=== PATIENT | female | born 1970 | race Caucasian/White ===

== ENCOUNTER 2017-05-23 00:14 | Inpatient (IN) ==
[2017-05-23 00:32] LABS: Basophils % 0.5 %; Eosinophils # 0.1 K/mcL (0.0-0.6); Eosinophils % 1.3 %; Hematocrit 35.4 % (35.3-44.9); Hemoglobin 11.7 g/dL (11.5-15.4); Immature Granulocytes % 0.3 % (0-4); Lymphocytes # 1.9 K/mcL (0.6-4.6); Lymphocytes % 31.1 %; Mean Corpuscular HGB Conc 33.1 g/dL (31.6-35.5); Mean Corpuscular Volume 93.7 fL (83.0-100.0); Mean Platelet Volume 10.8 fL (9.4-12.4); Monocytes # 0.5 K/mcL (0.0-1.3); Monocytes % 7.2 %; Neutrophils # 3.7 K/mcL (1.6-8.9); Platelet Count 158 K/mcL (140-400); Red Blood Count 3.78 M/mcL (3.82-4.97); Red Cell Distribution Width 13.3 % (11.5-14.5); Segmented Neutrophils % 59.6 %
[2017-05-23 00:46] LABS: BUN/Creatinine Ratio 20 (6-26); Blood Urea Nitrogen 18 mg/dL (7-20); Calcium 9.7 mg/dL (8.6-10.8); Carbon Dioxide 22 mEq/L (19-29); Chloride 107 mEq/L (98-109); Glucose 96 mg/dL (70-99); Osmolality,Calculated 292 (280-300); Potassium 3.9 mEq/L (3.5-4.5); Sodium 140 mEq/L (136-145); eGFR For African Americans > 60 (> 60); eGFR For Non-African Americans > 60 (> 60)
[2017-05-23 00:47] LABS: INR 1.1; Prothrombin Time 11.3 Seconds (9.4-12.1)
[2017-05-23 00:49] LABS: Activated Partial Thrombo Time 28.4 Seconds (26.0-36.0)
[2017-05-23 00:56] LABS: Bilirubin,Urine Negative (Negative); Blood,Urine Negative (Negative); Clarity,Urine Clear (Clear); Color,Urine Yellow (Yellow); Glucose,Urine (UA) Normal (Normal); Ketones,Urine Negative (Negative); Leukocyte Esterase,Urine Trace (Negative); Nitrite,Urine Negative (Negative); Protein,Urine Negative (Neg-Trace); Specific Gravity,Urine 1.018 (1.010-1.025); Urobilinogen,Urine Normal (Normal)
[2017-05-23 01:09] LABS: Bacteria,Urine Few per hpf (None-Few); RBC,Urine 0-3 per hpf (0-3)
[2017-05-23] MEDS ORDERED: Ondansetron 4 MG/2 ML VIAL IVP PRN (01:25)
--- NOTE | 2017-05-23 01:26 | Emergency Department Note ---
Disposition Clinical Impression: Stable angina Disposition: Admitted As Inpatient Condition: Good Referrals: Annita Smart CNP [Primary Care Provider] - Forms: ED Satisfaction Letter Time of Disposition: 01:57 Chest Pain HPI - General Chief Complaint: ED Chest Pain Stated Complaint: chest pain Time Seen by Provider: 05/23/17 00:20 Source: patient Mode of arrival: ambulatory Limitations: no limitations Vital Signs Reviewed: Yes Nursing Notes Reviewed: Yes - History of Present Illness HPI Narrative: Patient presents to the ED with the chief complaint of chest pain, nausea. Patient states he has a history of coronary artery disease with previous VA and stents. States the pain was rather acute in onset about an hour prior to arrival when she was at rest. States it is in the middle of her chest and radiates through to her back and jaw. Associated with nausea and generalized weakness. Denies any shortness breath. States she feels awful. Severity scale (1-10): 4 - Related Data Allergies Allergy/AdvReac Type Severity Reaction Status Date / Time Erythromycin Base Allergy Hives Verified 05/23/17 00:20 tea Allergy Swelling Uncoded 05/23/17 00:20 of Lip/Tongue/Throat All systems ED: reviewed and negative except as stated. 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 - Social History Smoking Status: Current every day smoker Alcohol use: Reports: none Drug use: Reports: none Physical Exam - General Limitations: no limitations General appearance: alert, in no apparent distress - Head Head exam: atraumatic, normocephalic, normal inspection - Eye Eye exam: Present: normal appearance, PERRL, EOMI - Chest Chest inspection: Present: normal inspection, symmetric chest wall rise - Respiratory Respiratory exam: Present: normal lung sounds bilaterally - Cardiovascular Cardiovascular exam: Present: regular rate, normal rhythm, normal heart sounds - Abdominal Exam Abdominal exam: Present: soft, Non-Tender. Absent: tenderness, distention, guarding, rebound, rigidity - Neurological Exam Neurological exam: Present: alert, oriented X3 - Psychiatric Psychiatric exam: Present: normal affect, normal mood - Skin Skin exam: Present: warm, dry, intact, normal color Course Course Narrative: Patient presenting with chest pain. Workup started. We will reevaluate. - Reevaluation(s) Reevaluation #1: Patient's initial troponin is normal. However, symptom onset was about 2 hours ago. Patient still complaining of nausea and 4 out of 10 pain. EKG shows no acute ischemic changes. We will try nitroglycerin and Zofran. Patient will likely need to be admitted for her anginal equivalent nitro helped. Vital Signs Temperature 98.4 F 05/23/17 00:15 Pulse Rate 65 05/23/17 00:15 Respiratory Rate 18 05/23/17 00:15 Blood Pressure 130/58 05/23/17 00:15 O2 Sat by Pulse Oximetry 99 05/23/17 00:15 Temperature 98.4 F 05/23/17 00:15 Pulse Rate 57 05/23/17 01:53 Respiratory Rate 18 05/23/17 00:15 Blood Pressure 118/75 05/23/17 01:53 O2 Sat by Pulse Oximetry 100 05/23/17 00:27 Oxygen Delivery Oxygen Delivery Room Air Chest Pain - Lab Data Result diagrams: 05/23/17 00:26 05/23/17 00:26 Lab Results 05/23/17 05/23/17 05/23/17 Range/Units 00:26 00:26 00:26 WBC 6.2 (4.3-11.1) K/mcL RBC 3.78 L (3.82-4.97) M/mcL Hgb 11.7 (11.5-15.4) g/dL Hct 35.4 (35.3-44.9) % MCV 93.7 (83.0-100.0) fL MCH 31.0 (28.0-33.3) pg MCHC 33.1 (31.6-35.5) g/dL RDW 13.3 (11.5-14.5) % Plt Count 158 (140-400) K/mcL MPV 10.8 (9.4-12.4) fL Immature Gran % 0.3 (0-4) % Seg Neutrophils % 59.6 % Lymphocytes % 31.1 % Monocytes % 7.2 % Eosinophils % 1.3 % Basophils % 0.5 % Neutrophils # 3.7 (1.6-8.9) K/mcL Lymphocytes # 1.9 (0.6-4.6) K/mcL Monocytes # 0.5 (0.0-1.3) K/mcL Eosinophils # 0.1 (0.0-0.6) K/mcL Basophils # 0.0 (0.0-0.2) K/mcL PT 11.3 (9.4-12.1) Seconds INR 1.1 APTT 28.4 (26.0-36.0) Seconds Sodium (136-145) mEq/L Potassium (3.5-4.5) mEq/L Chloride (98-109) mEq/L Carbon Dioxide (19-29) mEq/L BUN (7-20) mg/dL Creatinine (0.57-1.11) mg/dL Est GFR ( Amer) (> 60) Est GFR (Non-Af Amer) (> 60) BUN/Creatinine Ratio (6-26) Glucose (70-99) mg/dL Calculated Osmolality (280-300) Calcium (8.6-10.8) mg/dL Troponin I (0-0.03) ng/mL B-Natriuretic Peptide 103 H (0-100) pg/mL Urine Color (Yellow) Urine Clarity (Clear) Urine pH (5.0-8.0) pH Units Ur Specific Anderson (1.010-1.025) Urine Protein (Neg-Trace) mg/dL Urine Glucose (UA) (Normal) mg/dL Urine Ketones (Negative) mg/dL Urine Blood (Negative) Urine Nitrite (Negative) Urine Bilirubin (Negative) Urine Urobilinogen (Normal) mg/dL Ur Leukocyte Esterase (Negative) Urine Microscopic RBC (0-3) per hpf Urine Microscopic WBC (0-3) per hpf Urine Bacteria (None-Few) per hpf Ur Culture Indicated? (NO) 05/23/17 05/23/17 05/23/17 Range/Units 00:26 00:26 00:40 WBC (4.3-11.1) K/mcL RBC (3.82-4.97) M/mcL Hgb (11.5-15.4) g/dL Hct (35.3-44.9) % MCV (83.0-100.0) fL MCH (28.0-33.3) pg MCHC (31.6-35.5) g/dL RDW (11.5-14.5) % Plt Count (140-400) K/mcL MPV (9.4-12.4) fL Immature Gran % (0-4) % Seg Neutrophils % % Lymphocytes % % Monocytes % % Eosinophils % % Basophils % % Neutrophils # (1.6-8.9) K/mcL Lymphocytes # (0.6-4.6) K/mcL Monocytes # (0.0-1.3) K/mcL Eosinophils # (0.0-0.6) K/mcL Basophils # (0.0-0.2) K/mcL PT (9.4-12.1) Seconds INR APTT (26.0-36.0) Seconds Sodium 140 (136-145) mEq/L Potassium 3.9 (3.5-4.5) mEq/L Chloride 107 (98-109) mEq/L Carbon Dioxide 22 (19-29) mEq/L BUN 18 (7-20) mg/dL Creatinine 0.90 (0.57-1.11) mg/dL Est GFR ( Amer) > 60 (> 60) Est GFR (Non-Af Amer) > 60 (> 60) BUN/Creatinine Ratio 20 (6-26) Glucose 96 (70-99) mg/dL Calculated Osmolality 292 (280-300) Calcium 9.7 (8.6-10.8) mg/dL Troponin I 0.00 (0-0.03) ng/mL B-Natriuretic Peptide (0-100) pg/mL Urine Color Yellow (Yellow) Urine Clarity Clear (Clear) Urine pH 7.0 (5.0-8.0) pH Units Ur Specific Anderson 1.018 (1.010-1.025) Urine Protein Negative (Neg-Trace) mg/dL Urine Glucose (UA) Normal (Normal) mg/dL Urine Ketones Negative (Negative) mg/dL Urine Blood Negative (Negative) Urine Nitrite Negative (Negative) Urine Bilirubin Negative (Negative) Urine Urobilinogen Normal (Normal) mg/dL Ur Leukocyte Esterase Trace H (Negative) Urine Microscopic RBC 0-3 (0-3) per hpf Urine Microscopic WBC 3-5 H (0-3) per hpf Urine Bacteria Few (None-Few) per hpf Ur Culture Indicated? YES A (NO) Heart Score - Score History: Moderately Suspicious EKG: Non Specific repolarisation Disturbance Age: Less than 45 Risk Factors: Equal/Greater than 3 risk factor or history of atherosclerotic disease Troponin: Less than normal limit HEART Score Total: 4 S.B.A.Amarjit. - S.B.AGeorgette Situation: Demographics, MOA Background: Presenting Complaint, Relevant PMH, Meds, & Allergies Assessment: Vital Signs, Course and respsone to treatment, Exam Concerns, Patient/Family Expectation, Pertinant Lab Results, Outstanding Labs Recommendation: Barrier(s) to disposition, Recommendation based on pending studies, treatments, or consults S.B.A.R. Report Given to: Dr. Kirk MongeAGeorgette Repor Time: 01:58
--- NOTE | 2017-05-23 01:27 | Emergency Department Note ---
START Narrative - START START: I examined this patient and my medical decision-making was reviewed with the Resident Physician. I agree with the documented findings, disposition and treatment plan as described except to the extent set forth below. 46yo F here for chest pain. hx of CAD. admit for aCS rule out. trop neg ekg ok vss cp still a 11/11. nitro ordered.
[2017-05-23] MEDS: Nitroglycerin 0.4 MG TAB.SUBL SL PRN ×3 (01:46→01:57)
[2017-05-23] MEDS ORDERED: Ondansetron 4 MG/2 ML VIAL ONE (01:49)
--- NOTE | 2017-05-23 03:22 | Event Note ---
Date of Encounter: 05/23/17 Time of Encounter: 03:21 Patient seen and examined with medical record consultant. 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 No relation to exertion. Rule out acute coronary syndrome and check the regina. Patient does not recall having any coronary bypass during the mitral valve replacement she had last year. She has prior history of IV drug use and hepatitis C virus has been sober for many years. Electrocardiogram shows no ST segment shifts. 1st troponin normal
[2017-05-23] MEDS ORDERED: Naloxone 0.4 MG/ML INJ IVP PRN ×2 (03:34→03:35)
[2017-05-23] MEDS ORDERED: 0.9 % Sodium Chloride 1,000 ML IVC SCH (03:45)
[2017-05-23] MEDS ORDERED: Acetaminophen 325 MG TABLET PO ONE (03:54)
--- NOTE | 2017-05-23 03:59 | Internal Med History&Physical ---
Date of Encounter: 05/23/17 Time of Encounter: 03:45 Assessment and Plan (1) Chest pain Current visit: Yes Status: Acute Patient's chest pain was described as centralized in her chest. Describes as a pressure like pain. Was rated 4 out of 10. -Patient's pain was improved with nitroglycerin. -EKG demonstrated no acute ischemic changes. -Chest x-ray was unremarkable. -Initial troponin was negative. -Troponin 2. -Continue to monitor vital signs. Qualifiers: Qualified Code(s): R07.9 - Chest pain, unspecified (2) Stable angina Current visit: Yes Status: Acute She has known history of stable angina. -Patient states that her chest pain that she experienced before admission was similar to the chest pain that she felt before. -Initial troponin was negative. -Repeat troponin 2. Internal Medicine - H&P: HPI History of present illness: Ms. Ines Valencia is a 46 year old female with past medical history of coronary artery disease and myocardial infarction who presented to the department with chief complaint of chest pain. Patient states that the pain was rather acute in onset and occurred proximally one hour prior to arrival. Patient stated the pain was located in the middle of her chest and radiated down to her back and up into her jaw. Patient admits to having nausea with this pain, but no vomiting or other GI distress. She denies diaphoresis. She says that she felt a generalized weakness when this pain started. She is not having shortness of breath. Upon arrival to the emergency department, patient was given a chest x- ray and EKG. Chest x-ray was unremarkable, an EKG showed no signs of myocardial infarction. Patient's pain has been relieved with nitroglycerin and nausea has been relieved with Zofran. During examination, patient did not complain of any chest pain, and was in no acute distress. She has no complaints at this time. Past Med Surg Social Fam HX - Past Medical History Medical history: coronary artery disease, hepatitis, myocardial infarction, other Psychiatric history: anxiety, depression - Past Surgical History Surgical History: angioplasty/stent, , hysterectomy - Social History Smoking Status: Current every day smoker Packs per day: 0.5 Smokeless Tobacco Status: No Alcohol use: none Drug use: none - Family History Sister Name: Kayla Lopez Age: 51 Living Status: Still Living Hx Family Cardiac Disorders: Yes (Mitral valve prolaps) Internal Medicine - H&P: Meds Albuterol Sulfate [Proventil Hfa] 6.7 gm IH Q6HR PRN 05/23/17 [History] Aspirin Enteric Coated [Aspirin EC] 81 mg PO DAILY 05/23/17 [History] Ferrous Sulfate TID 05/23/17 [History] Metoprolol [Lopressor] 12.5 mg PO BID 05/23/17 [History] Mometasone Furoate [Asmanex Hfa] 13 gm IH BID 05/23/17 [History] Polyethylene Glycol 3350 [MiraLAX] 17 gm PO DAILY 05/23/17 [History] 3 Allergy/AdvReac Type Severity Reaction Status Date / Time Erythromycin Base Allergy Hives Verified 05/23/17 00:20 tea Allergy Swelling Uncoded 05/23/17 00:20 of Lip/Tongue/Throat All Systems PM: A 10-system review of systems was performed and is negative for pertinent findings except as documented above in the HPI. - Constitutional Constitutional: no chills, no fever(s), no night sweats - EENT Eyes: no change in vision, no discharge, no pain, no photophobia Ears: no ear discharge, no ear pain, no tinnitus Nose, mouth and throat: no dysphagia, no nasal discharge, no neck pain, no sore throat - Cardiovascular Cardiovascular ROS IM: no chest pain, no diaphoresis, no dyspnea, no lightheadedness, no palpitations, no syncope - Respiratory Respiratory: no cough, no dyspnea, no wheezing, no excessive phlegm production - Gastrointestinal Gastrointestinal: no abdominal pain, no diarrhea, no hematemesis, no hematochezia, no melena, no nausea, no vomiting - Genitourinary Genitourinary: no change in urinary stream, no dysuria, no flank pain - Musculoskeletal Musculoskeletal ROS IM: no numbness, no tingling - Constitutional Vitals: Temp Pulse Resp BP Pulse Ox 97.2 F L 60 16 115/77 98 05/23/17 02:59 05/23/17 02:59 05/23/17 02:59 05/23/17 02:59 05/23/17 02:59 - Head Head exam: Present: atraumatic, normocephalic - Eye Eye exam: Present: PERRL, conjuntiva pink, sclera anicteric Pupils: Present: PERRL - Neck Neck exam general surgery: Present: supple, trachea midline. Absent: lymphadenopathy - Respiratory Respiratory exam: Present: CTAB. Absent: accessory muscle use, rales, rhonchi, wheezes - Cardiovascular Cardiovascular exam: Present: RRR, +S1, +S2. Absent: diastolic murmur, gallop, rubs, systolic murmur - GI/Abdominal GI/Abdominal exam: Present: normal bowel sounds, soft, no peritoneal signs. Absent: distended, tenderness - Extremities Exam Extremities exam: Present: warm, radial pulses palpable and symmetrical. Absent : calf tenderness, cyanotic, pedal edema - Neurological Exam Neurological exam: Present: CN II-XII intact, oriented X3, no focal deficits. Absent: pronater drift, facial droop, speech deficit - Skin Skin exam: Present: dry, intact Internal Med - H&P Results - Labs CBC & Chem 7: 05/23/17 00:26 05/23/17 00:26
[2017-05-23 04:00] LABS: Amphetamine Screen,Urine Negative ng/mL (Cutoff=1000); Barbiturate Screen,Urine Negative ng/mL (Cutoff=200); Benzodiazepines Screen,Urine Negative ng/mL (Cutoff=200); Cannabinoid Screen,Urine Negative ng/mL (Cutoff = 50); Cocaine Screen,Urine Negative ng/mL (Cutoff= 300); Opiate Screen,Urine Negative ng/mL (Cutoff=300); Phencyclidine Screen,Urine Negative ng/mL (Cutoff=25)
[2017-05-23 04:56] LABS: Basophils % 0.6 %; Eosinophils # 0.1 K/mcL (0.0-0.6); Eosinophils % 1.5 %; Hematocrit 34.9 % (35.3-44.9); Hemoglobin 11.5 g/dL (11.5-15.4); Immature Granulocytes % 0.2 % (0-4); Immature Platelets 8.5 % (1.1-6.1); Lymphocytes # 1.6 K/mcL (0.6-4.6); Lymphocytes % 30.3 %; Mean Corpuscular Hemoglobin 30.9 pg (28.0-33.3); Mean Corpuscular Volume 93.8 fL (83.0-100.0); Mean Platelet Volume 11.3 fL (9.4-12.4); Monocytes # 0.3 K/mcL (0.0-1.3); Monocytes % 6.5 %; Neutrophils # 3.2 K/mcL (1.6-8.9); Platelet Count 138 K/mcL (140-400); Red Blood Count 3.72 M/mcL (3.82-4.97); Red Cell Distribution Width 13.4 % (11.5-14.5); Segmented Neutrophils % 60.9 %
[2017-05-23 05:00] LABS: BUN/Creatinine Ratio 19 (6-26); Blood Urea Nitrogen 15 mg/dL (7-20); Calcium 9.7 mg/dL (8.6-10.8); Carbon Dioxide 22 mEq/L (19-29); Chloride 108 mEq/L (98-109); Chol/HDL Ratio 3.3 (0-4.9); Cholesterol 180 mg/dL (< 200); Glucose 97 mg/dL (70-99); HDL Cholesterol 54 mg/dL (40-59); LDL Cholesterol,Calculated 115 mg/dL (0-99); Osmolality,Calculated 291 (280-300); Potassium 3.9 mEq/L (3.5-4.5); Sodium 140 mEq/L (136-145); Triglycerides 57 mg/dL (< 150); eGFR For African Americans > 60 (> 60); eGFR For Non-African Americans > 60 (> 60)
[2017-05-23 05:11] LABS: Platelet Estimate Normal (Normal)
[2017-05-23] MEDS: *HR* Enoxaparin 40 MG/0.4 ML SYRINGE SQ SCH (05:35)
[2017-05-23] MEDS: Aspirin Enteric Coated 81 MG Tablet PO SCH (07:59)
[2017-05-23] MEDS: Beclomethasone 80mcg MDI IH SCH ×2 (11:51→20:35)
--- NOTE | 2017-05-23 13:08 | Event Note ---
Date of Encounter: 05/23/17 Time of Encounter: 08:40 Patient is currently lying in bed. Appears comfortable. Chest pain has improved. No shortness of breath. No nausea or vomiting. Troponins are negative. Will schedule for stress test. Patient received metoprolol this morning. So we will plan for a stress test tomorrow.
[2017-05-23] MEDS ORDERED: Acetaminophen 325 MG TABLET PO PRN (18:29)
--- NOTE | 2017-05-23 18:38 | Electrocardiograph Report ---
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
[2017-05-24] MEDS: *HR* Enoxaparin 40 MG/0.4 ML SYRINGE SQ SCH (05:59)
[2017-05-24] MEDS ORDERED: Regadenoson 0.4 MG/5 ML SYRINGE IVP ONE (06:45)
[2017-05-24] MEDS: Beclomethasone 80mcg MDI IH SCH (10:08)
[2017-05-24] MEDS: Aspirin Enteric Coated 81 MG Tablet PO SCH (10:33)
[2017-05-24 11:06] VITALS: BP 106/69
--- NOTE | 2017-05-24 13:15 | Discharge Summary ---
Date of Encounter: 05/24/17 Time of Encounter: 13:13 - Discharge Diagnosis (1) Chest pain Priority: Primary Status: Acute Qualifiers: Chest pain type: precordial pain Qualified Code(s): R07.2 - Precordial pain (2) Stable angina Priority: Secondary Status: Chronic (3) Incidental lung nodule, > 3mm and < 8mm Priority: Secondary Status: Acute - Discharge Medications Prescriptions: Isosorbide MONOnitrate (24 HR) [Imdur] 30 mg PO DAILY #30 tab.er.24h Home Medications: Albuterol Sulfate [Proventil Hfa] 1 puff IH Q6HR PRN 05/23/17 [History] Aspirin 81 mg PO DAILY 05/23/17 [History] Aspirin Enteric Coated [Aspirin EC] 81 mg PO DAILY 05/23/17 [History] Metoprolol [Lopressor] 12.5 mg PO BID 05/23/17 [History] Mometasone Furoate [Asmanex Hfa] 1 puff IH BID 05/23/17 [History] Polyethylene Glycol 3350 [MiraLAX] 17 gm PO DAILY PRN 05/23/17 [History] Isosorbide MONOnitrate (24 HR) [Imdur] 30 mg PO DAILY #30 tab.er.24h 05/24/17 [ Rx] Allergies/Adverse Reactions: 3 Allergy/AdvReac Type Severity Reaction Status Date / Time Erythromycin Base Allergy Hives Verified 05/23/17 00:20 tea Allergy Swelling Uncoded 05/23/17 00:20 of Lip/Tongue/Throat Procedures/tests Complete & Pending: Procedures Performed prior 72 hours Category Date Time Status CTA chest [CT angio chest] [CT] Stat Cat Scan 05/23/17 06:41 Completed NM olivia perf SPECT multi [NM] Routine Exams 05/24/17 07:00 Taken SP pharm nuclear stress Routine Y 05/24/17 07:00 Completed - Notes to Outpatient Provider Patient was found to have a 4 mm subpleural nodule within the left upper lobe, most likely a benign granuloma. As she is a high risk patient with history of smoking, optional CT is recommended at 12 months. Date of admission: 05/23/17 03:34 Primary care physician: Annita Smart CNP Discharging clinician: Miguel A Sanders Anticipated date of discharge: 05/24/17 - Patient Status Disposition: Home, Self-Care Condition: Good Functional capacity at discharge: independent ambulation Overall status at discharge: patient is progressing back to baseline - Discharge Instructions Instructions: Chest Pain (DC) Follow Up With: Annita Smart CNP [Primary Care Provider] - - Diet and Activity Activity: increase activity as tolerated Diet: low fat, low cholesterol, low salt diet Hospital course: Ms. Ines Valencia is a 46 year old female patient with a coronary artery disease and prior CA presented to the ER with complaints of chest pain. She has a history of stable angina. This time her chest pain was substernal and radiating down to her back and into her jaw. She was observed in the hospital to rule out ACS. Troponins were negative. EKG did not show any acute ST segment changes. Patient underwent cardiac stress test which was negative for ischemia or perfusion imaging. She does not have any chest pain at this time is stable to be discharged home. For her stable angina, I will add Imdur in addition to her beta diaz to help control her symptoms. 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 Patient was found to have a 4 mm subpleural nodule within the left upper lobe, most likely a benign granuloma. As she is a high risk patient with history of smoking, optional CT is recommended at 12 months. - Time Spent with Patient Total time spent providing and/or coordinating discharge services: Less than 30 minutes (20 min) - Constitutional Vitals: Temp Pulse Resp BP Pulse Ox 97.6 F 68 16 106/69 98 05/24/17 11:04 05/24/17 11:04 05/24/17 11:04 05/24/17 11:04 05/24/17 11:04 General appearance: Present: cooperative, A&O X 3, answers questions appropriately - Respiratory Respiratory exam: Present: CTAB. Absent: accessory muscle use, rales, rhonchi, wheezes - Cardiovascular Cardiovascular exam: Present: RRR, +S1, +S2. Absent: diastolic murmur, gallop, rubs, systolic murmur
[2017-05-24] MEDS ORDERED: FLUARIX QUAD 2017-18 36MOS UP/PF 0.5 ML SYRINGE IM ONE (13:59)
== END 2017-05-24 14:20 | disposition home or self-care (01) | DRG 198 ==
LOC: EMEROO 00:14 → 3BNU 00:14 → SUATTDRO 03:34
PROVIDERS: ADMIT Internal Medicine; ATTEND Internal Medicine

== ENCOUNTER 2018-12-14 15:19 | Inpatient (IN) ==
[2018-12-14] MEDS ORDERED: 0.9 % Sodium Chloride 1,000 ML IVC ONE (16:46)
[2018-12-14 17:08] LABS: Basophils % 0.5 %; Eosinophils % 0.5 %
[2018-12-14 17:09] LABS: Hematocrit 23.7 % (35.3-44.9); Hemoglobin 6.7 g/dL (11.5-15.4); Immature Granulocytes % 0.5 % (0-4); Lymphocytes # 0.4 K/mcL (0.6-4.6); Lymphocytes % 23.2 %; Mean Corpuscular HGB Conc 28.3 g/dL (31.6-35.5); Mean Corpuscular Hemoglobin 25.6 pg (28.0-33.3); Mean Corpuscular Volume 90.5 fL (83.0-100.0); Mean Platelet Volume 11.4 fL (9.4-12.4); Monocytes # 0.1 K/mcL (0.0-1.3); Monocytes % 4.3 %; Red Blood Count 2.62 M/mcL (3.82-4.97); Red Cell Distribution Width 15.5 % (11.5-14.5)
[2018-12-14 17:10] LABS: Neutrophils # 1.4 K/mcL (1.6-8.9); Platelet Count 94 K/mcL (140-400)
[2018-12-14 17:13] LABS: Anisocytosis 1+ (Not Present); Hypochromasia Present (Not Present); Platelet Estimate Decreased (Normal)
[2018-12-14 17:15] LABS: INR 1.1; Prothrombin Time 12.9 Seconds (9.4-12.1)
[2018-12-14] MEDS ORDERED: *HR* HYDROcodone/Acet 5/325 mg TABLET PO ONE (17:57)
[2018-12-14 18:17] LABS: Alanine Aminotransferase 13 Units/L (7-52); Albumin 3.4 g/dL (3.5-5.7); Albumin/Globulin Ratio 0.8 (1.1-2.2); Alkaline Phosphatase 149 Units/L (34-104); Aspartate Amino Transferase 37 Units/L (13-39); BUN/Creatinine Ratio 33 (6-26); Bilirubin,Direct 0.1 mg/dL (0.0-0.2); Bilirubin,Indirect 0.4 mg/dL (0.0-1.2); Bilirubin,Total 0.5 mg/dL (0.3-1.0); Blood Urea Nitrogen 30 mg/dL (6-20); Calcium 8.9 mg/dL (8.6-10.3); Carbon Dioxide 22 mEq/L (23-29); Chloride 104 mEq/L (98-107); Globulin 4.3 g/dL (2.4-3.5); Glucose 99 mg/dL (70-105); Osmolality,Calculated 286 (280-300); Potassium 3.5 mEq/L (3.5-5.1); Sodium 135 mEq/L (136-145); Total Protein 7.7 g/dL (6.4-8.9); Troponin I 0.17 ng/mL (< 0.04); eGFR For Non-African Americans > 60 (> 60)
[2018-12-14] MEDS ORDERED: Piperacillin/Tazobactam 4.5 GM in Water for inj. (sterile) 20 ML 20 ML IVP ONE (18:42)
[2018-12-14] MEDS ORDERED: Vancomycin (wt based) 1,000 MG VIAL IV ONE (18:43)
[2018-12-14 18:44] LABS: Bilirubin,Urine Small (Negative); Blood,Urine Negative (Negative); Clarity,Urine Clear (Clear); Color,Urine Yellow (Yellow); Glucose,Urine (UA) Normal (Normal); Ketones,Urine Negative (Negative); Leukocyte Esterase,Urine Trace (Negative); Nitrite,Urine Negative (Negative); Protein,Urine 100 mg/dL (Neg-Trace); Specific Gravity,Urine 1.026 (1.010-1.025); Urobilinogen,Urine Normal (Normal)
[2018-12-14 18:46] LABS: Bacteria,Urine Moderate per hpf (None-Few); Hyaline Casts,Urine None Seen per lpf (None-Few); RBC,Urine 15-30 per hpf (0-3); Squamous Epithelial Cell,Urine Many per lpf (None-Few)
--- NOTE | 2018-12-14 18:46 | Emergency Department Note ---
Disposition Clinical Impression: Pancytopenia, Petechiae, Elevated troponin Disposition: Admitted As Inpatient Condition: Fair Referrals: NONE,PCP [Primary Care Provider] - General Adult HPI - General Chief complaint: ED General Medical Stated complaint: Low INR/Right Arm Numb x 2 days Time Seen by Provider: 12/14/18 16:10 Source: patient, family Limitations: no limitations Nursing Notes Reviewed: Yes Vital Signs Reviewed: Yes - History of Present Illness HPI Narrative: 48-year-old female with past medical history of remote heroin abuse and mitral valve replacement presents for generalized weakness which is a little bit worse in the right upper extremity as compared to the left. She has fatigue and e xertional dyspnea. Symptoms have been constant and progressive. She denies any confusion, syncope, fever, cough or cold, abdominal pain, change in urination or bowel movements. She had pedal edema for the last few days. She has petechiae to her feet bilaterally. She states that those have been going on for the last month when she saw her primary care physician and was told to come to the hosp ital for anemia and petechiae. She did not want to go to hospital at that time so she waited until symptoms worsened. Pain Scale: 3 - Related Data Home Medications Medication Instructions Recorded Confirmed Albuterol Sulfate [Proventil Hfa] 1 puff IH Q6HR PRN 05/23/17 05/23/17 Aspirin 81 mg PO DAILY 05/23/17 05/23/17 Aspirin Enteric Coated [Aspirin EC] 81 mg PO DAILY 05/23/17 05/23/17 Metoprolol [Lopressor] 12.5 mg PO BID 05/23/17 05/23/17 Mometasone Furoate [Asmanex Hfa] 1 puff IH BID 05/23/17 05/23/17 Polyethylene Glycol 3350 [MiraLAX] 17 gm PO DAILY PRN 05/23/17 05/23/17 Previous Rx's Medication Instructions Recorded Isosorbide MONOnitrate (24 HR) 30 mg PO DAILY #30 tab.er.24h 05/24/17 [Imdur] Allergies Allergy/AdvReac Type Severity Reaction Status Date / Time Erythromycin Base Allergy Hives Verified 05/23/17 00:20 tea Allergy Swelling Uncoded 05/23/17 00:20 of Lip/Tongue/Throat All systems ED: reviewed and negative except as stated. Past Medical History - Past Medical History Attestation: Yes The following information was validated with the patient. 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 Absent: respiratory distress - Cardiovascular Cardiovascular exam: Present: regular rate, normal rhythm - Abdominal Exam Abdominal exam: Present: soft, Non-Tender. Absent: distention - Rectal Exam Rectal exam: Present: normal inspection, normal rectal tone, heme (-) stool - Extremities Exam Extremities exam: Present: pedal edema. Absent: tenderness - Back Exam Back exam: Present: normal inspection, full ROM - Neurological Exam Neurological exam: Present: alert, oriented X3, other (Patient with motor 4 out of 5 in the right upper extremity with otherwise normal motor exam in the bilateral upper and lower extremity.) - Psychiatric Psychiatric exam: Present: normal affect, normal mood - Skin Skin exam: Present: warm, dry Course Course Narrative: Patient with anemia at 6.7 with white blood cells of 1.9. with blood pressures 80-90s systolic in the emergency department. She is mentating appropriately. Abdomen is soft and nontender. Lungs are clear to auscultation bilaterally. She has negative noncontrast CT scan of the brain. INR is 1.1. Patient will be transfused in the emergency department. Hospitalist requests antibiotics for possible sepsis pending completion of evaluation. Patient admitted for further evaluation and management. EKG interpreted by me shows normal sinus rhythm at 81 with normal axis and intervals. Normal ST segments. Essentially normal EKG. Vital Signs Temperature 97.7 F 12/14/18 15:25 Pulse Rate 79 12/14/18 15:25 Respiratory Rate 16 12/14/18 15:25 Blood Pressure 86/48 12/14/18 15:25 O2 Sat by Pulse Oximetry 100 12/14/18 15:25 Temperature 97.7 F 12/14/18 15:25 Pulse Rate 80 12/14/18 16:01 Respiratory Rate 18 12/14/18 16:01 Blood Pressure 81/50 12/14/18 16:08 O2 Sat by Pulse Oximetry 100 12/14/18 16:01 Oxygen Delivery Oxygen Delivery Room Air Medical Decision Making - Lab Data Result diagrams: 12/14/18 16:20 12/14/18 16:20 Lab Results 12/14/18 12/14/18 12/14/18 Range/Units 16:20 16:20 16:20 WBC 1.9 L (4.3-11.1) K/mcL RBC 2.62 L (3.82-4.97) M/mcL Hgb 6.7 L (11.5-15.4) g/dL Hct 23.7 L (35.3-44.9) % MCV 90.5 (83.0-100.0) fL MCH 25.6 L (28.0-33.3) pg MCHC 28.3 L (31.6-35.5) g/dL RDW 15.5 H (11.5-14.5) % Plt Count 94 L (140-400) K/mcL MPV 11.4 (9.4-12.4) fL Immature Gran % 0.5 (0-4) % Seg Neutrophils % 71.0 % Lymphocytes % 23.2 % Monocytes % 4.3 % Eosinophils % 0.5 % Basophils % 0.5 % Neutrophils # 1.4 L (1.6-8.9) K/mcL Lymphocytes # 0.4 L (0.6-4.6) K/mcL Monocytes # 0.1 (0.0-1.3) K/mcL Eosinophils # 0.0 (0.0-0.6) K/mcL Basophils # 0.0 (0.0-0.2) K/mcL Platelet Estimate Decreased L (Normal) Hypochromasia Present A (Not Present) Anisocytosis 1+ A (Not Present) PT 12.9 H (9.4-12.1) Seconds INR 1.1 Fibrinogen 365 (169-393) mg/dL Sodium 135 L (136-145) mEq/L Potassium 3.5 (3.5-5.1) mEq/L Chloride 104 (98-107) mEq/L Carbon Dioxide 22 L (23-29) mEq/L BUN 30 H (6-20) mg/dL Creatinine 0.92 (0.60-1.20) mg/dL Est GFR ( Amer) > 60 (> 60) Est GFR (Non-Af Amer) > 60 (> 60) BUN/Creatinine Ratio 33 H (6-26) Glucose 99 (70-105) mg/dL Calculated Osmolality 286 (280-300) Calcium 8.9 (8.6-10.3) mg/dL Total Bilirubin 0.5 (0.3-1.0) mg/dL Direct Bilirubin 0.1 (0.0-0.2) mg/dL Indirect Bilirubin 0.4 (0.0-1.2) mg/dL AST 37 (13-39) Units/L ALT 13 (7-52) Units/L Alkaline Phosphatase 149 H (34-104) Units/L Troponin I 0.17 H* (< 0.04) ng/mL Serum Total Protein 7.7 (6.4-8.9) g/dL Albumin 3.4 L (3.5-5.7) g/dL Globulin 4.3 H (2.4-3.5) g/dL Albumin/Globulin Ratio 0.8 L (1.1-2.2) Stool Occult Bld Scrn (Negative) 12/14/18 Range/Units 18:20 WBC (4.3-11.1) K/mcL RBC (3.82-4.97) M/mcL Hgb (11.5-15.4) g/dL Hct (35.3-44.9) % MCV (83.0-100.0) fL MCH (28.0-33.3) pg MCHC (31.6-35.5) g/dL RDW (11.5-14.5) % Plt Count (140-400) K/mcL MPV (9.4-12.4) fL Immature Gran % (0-4) % Seg Neutrophils % % Lymphocytes % % Monocytes % % Eosinophils % % Basophils % % Neutrophils # (1.6-8.9) K/mcL Lymphocytes # (0.6-4.6) K/mcL Monocytes # (0.0-1.3) K/mcL Eosinophils # (0.0-0.6) K/mcL Basophils # (0.0-0.2) K/mcL Platelet Estimate (Normal) Hypochromasia (Not Present) Anisocytosis (Not Present) PT (9.4-12.1) Seconds INR Fibrinogen (169-393) mg/dL Sodium (136-145) mEq/L Potassium (3.5-5.1) mEq/L Chloride (98-107) mEq/L Carbon Dioxide (23-29) mEq/L BUN (6-20) mg/dL Creatinine (0.60-1.20) mg/dL Est GFR ( Amer) (> 60) Est GFR (Non-Af Amer) (> 60) BUN/Creatinine Ratio (6-26) Glucose (70-105) mg/dL Calculated Osmolality (280-300) Calcium (8.6-10.3) mg/dL Total Bilirubin (0.3-1.0) mg/dL Direct Bilirubin (0.0-0.2) mg/dL Indirect Bilirubin (0.0-1.2) mg/dL AST (13-39) Units/L ALT (7-52) Units/L Alkaline Phosphatase (34-104) Units/L Troponin I (< 0.04) ng/mL Serum Total Protein (6.4-8.9) g/dL Albumin (3.5-5.7) g/dL Globulin (2.4-3.5) g/dL Albumin/Globulin Ratio (1.1-2.2) Stool Occult Bld Scrn Negative (Negative)
[2018-12-14] MEDS ORDERED: Piperacillin/Tazobactam 3.375 GM in 0.9 % Sodium Chloride Mini Bag 100 ML IVPB ONE (19:00)
[2018-12-14] MEDS ORDERED: 0.9 % Sodium Chloride 500 ML ONE (19:18)
[2018-12-14] MEDS ORDERED: traMADol 50 MG TABLET PO PRN (20:43)
[2018-12-14] MEDS ORDERED: Ondansetron 4 MG/2 ML VIAL IVP PRN (20:43)
[2018-12-14] MEDS ORDERED: Acetaminophen 325 MG TABLET PO PRN (20:43)
[2018-12-14] MEDS ORDERED: Naloxone 0.4 MG/ML INJ IVP PRN (20:43)
[2018-12-14] MEDS ORDERED: Albuterol 2.5 MG/3 ML NEBULIZER IH PRN (21:00)
[2018-12-14] MEDS ORDERED: Nicotine 21 MG PATCH.TD24 TD SCH (21:00)
[2018-12-14 21:08] LABS: Amphetamine Screen,Urine Positive ng/mL (Cutoff=1000); Barbiturate Screen,Urine Negative ng/mL (Cutoff=200); Benzodiazepines Screen,Urine Negative ng/mL (Cutoff=200); Cannabinoid Screen,Urine Negative ng/mL (Cutoff = 50); Cocaine Screen,Urine Negative ng/mL (Cutoff= 300); Opiate Screen,Urine Positive ng/mL (Cutoff=300); Phencyclidine Screen,Urine Negative ng/mL (Cutoff=25)
--- NOTE | 2018-12-14 21:29 | Internal Med History&Physical ---
Date of Encounter: 12/14/18 Time of Encounter: 19:30 Internal Medicine - H&P: HPI Chief complaint: weakness, exertional dyspnea; RUE paresis Admitted From: Emergency Dept Plans for Post Hospital Care: Home History of present illness: Ms. Valencia is a 48 year old female who presents to the ER tonight as recommended by her PCP. She had been complaining of a several month history of fatigue, weakness, exertional dyspnea, and right upper extremity weakness/paralysis for over 2 weeks now. She has been reluctant to come to the hospital for several months, but her PCP was able to finally convince her to come to the ER today. Workup in ER revealed patient to have pancytopenia with significant anemia. Fecal occult stool was negative. Furthermore, she had no history to suggest any GI bleeding. She has no vaginal bleeding as she has a history of hysterectomy. She was ordered blood transfusion in ER and admitted to hospitalist service. Daytime accepting physician requested blood cultures and antibiotics for poss ible sepsis. Upon my assessment of the patient in the ER this evening, patient is sitting up and elevating her feet. She is not lightheaded, dizzy, or having any signs or symptoms of chest pain or angina. She is quite pale, weak, and has very limited motor function of her right arm/hand. She has diffuse petechiae along her legs and arms. This has been present for several weeks now. She has a history of hepatitis C from prior IV drug abuse. She presently complains of exertional dyspnea. She denies any chest pain, heaviness, resting dyspnea, hemoptysis, cough, chest congestion, and wheezing. She has a history of mitral valve replacement with a porcine valve. This was done in 2012 secondary to severe mitral stenosis she has had since . She denies any history of endocarditis despite her IV drug abuse. Patient states that she has been clean of any IV drugs and drugs of abuse for over a year and a half now. She has had prior stroke twice before, once at the age of 15 years of age. Regarding her right arm paresis, this started about 2 weeks ago has not improved. Past Med Surg Social Fam HX - Past Medical History Attestation: Yes The following information was validated with the patient. Source: patient, old records reviewed Medical history: coronary artery disease, hepatitis, myocardial infarction, other Additional medical history: Hypoglycemia, SC w/ Stents, A flutter, hep C, smoker, IV druge use Psychiatric history: anxiety, depression - Past Surgical History Surgical History: angioplasty/stent, , hysterectomy Additional surgical history: Mitral valve replacement, ablasion - Social History Smoking Status: Current every day smoker Smokeless Tobacco Status: No Alcohol use: none Drug use: none Current living situation: Home, With Family Activity Level: Independent ambulation Recent Out of Country Travel Within the Last 8 Weeks: No - Family History Sister Living Status: Still Living Hx Family Cardiac Disorders: Yes (Mitral valve prolaps) Mother Hx Family Endocrine Disorder: Yes (DM) Father Hx Family Neuromuscular Disorders: Yes (CVA) Internal Medicine - H&P: Meds Albuterol Sulfate [Proventil Hfa] 1 puff IH Q6HR PRN 05/23/17 [History] Aspirin Enteric Coated [Aspirin EC] 81 mg PO DAILY 05/23/17 [History] Mometasone Furoate [Asmanex Hfa] 1 puff IH BID PRN 05/23/17 [History] Polyethylene Glycol 3350 [MiraLAX] 17 gm PO DAILY PRN 05/23/17 [History] traZODone [TraZODone] 200 mg PO HS 12/15/18 [History] Allergy/AdvReac Type Severity Reaction Status Date / Time Erythromycin Base Allergy Hives Verified 05/23/17 00:20 tea Allergy Swelling Uncoded 05/23/17 00:20 of Lip/Tongue/Throat - Constitutional Constitutional: fatigue, weakness, no chills, no fever(s), no night sweats - EENT Eyes: no blurry vision, no change in vision Ears: no ear pain, no tinnitus Nose, mouth and throat: no nasal congestion, no sinus pressure, no sore throat - Cardiovascular Cardiovascular ROS IM: dyspnea on exertion, edema, orthopnea, paroxysmal nocturnal dyspnea, no chest pain, no dyspnea, no syncope - Respiratory Respiratory: no cough, no hemoptysis, no chest congestion, no excessive phlegm production, no change in phlegm color - Gastrointestinal Gastrointestinal: bloating, nausea, no abdominal pain, no diarrhea, no heartburn, no hematemesis, no hematochezia, no melena, no vomiting - Genitourinary Genitourinary: no dysuria, no flank pain, no hematuria - Musculoskeletal Musculoskeletal ROS IM: arthralgias, no back pain - Integumentary Integumentary IM: rash, no jaundice Additional comments: petechiae legs/arms - Neurological Neurological ROS: focal weakness (RUE), no confusion, no convulsions, no disequilibrium, no dizziness, no frequent falls, no headache(s) - Psychiatric Psychiatric: no anxiety, no depression - Endocrine Endocrine IM: no polydipsia, no polyuria - Hematologic/Lymphatic Hematologic/Lymphatic: easy bleeding, easy bruising - Allergic/Immunologic Allergic/Immunologic: no wheezing, no GI upset with certain foods - Constitutional Vitals: Temp Pulse Resp BP Pulse Ox 97.5 F L 82 14 93/48 100 12/14/18 20:00 12/14/18 20:00 12/14/18 20:00 12/14/18 20:00 12/14/18 16:01 General appearance: Present: cooperative, A&O X 3, pleasant, answers questions appropriately Exam: see below - Head Head exam: Present: atraumatic, normal inspection - Eye Eye exam: Present: EOMI, PERRL. Absent: scleral icterus Pupils: Present: normal accommodation - ENT ENT exam: Present: mucous membranes dry, normal exam, normal oropharynx - Neck Neck exam general surgery: Present: full ROM, supple, trachea midline. Absent: tenderness, nuchal rigidity, thyromegaly - Respiratory Respiratory exam: Present: CTAB. Absent: chest wall tenderness, rales, respiratory distress, rhonchi, tachypnea - Cardiovascular Cardiovascular exam: Present: RRR, +S1, +S2. Absent: diastolic murmur, systolic murmur - GI/Abdominal GI/Abdominal exam: Present: distended, normal bowel sounds, soft. Absent: guarding, hepatomegaly, mass, rebound, splenomegaly, tenderness - Extremities Exam Extremities exam: Present: full ROM, pedal edema (2-3+), warm, radial pulses palpable and symmetrical. Absent: calf tenderness, joint swelling, normal capillary refill (roughly 4 seconds), tenderness - Back Exam Back exam: Present: normal inspection. Absent: CVA tenderness (L), CVA tenderness (R) - Neurological Exam Neurological exam: Present: alert, CN II-XII intact, oriented X3. 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), facial droop, speech deficit - Psychiatric Psychiatric exam: Present: normal affect, normal mood - Skin Skin exam: Present: dry, intact, petechiae (legs>arms), warm Internal Med - H&P Results - Labs CBC & Chem 7: 12/14/18 16:20 12/14/18 16:20 Labs: Short CBC 12/14/18 Range/Units 16:20 WBC 1.9 L (4.3-11.1) K/mcL Hgb 6.7 L (11.5-15.4) g/dL Hct 23.7 L (35.3-44.9) % Plt Count 94 L (140-400) K/mcL Neutrophils # 1.4 L (1.6-8.9) K/mcL BMP 12/14/18 16:20 Sodium 135 L Potassium 3.5 Chloride 104 Carbon Dioxide 22 L BUN 30 H Creatinine 0.92 Glucose 99 Calcium 8.9 Cardiac Enzymes 12/14/18 Range/Units 16:20 Troponin I 0.17 H* (< 0.04) ng/mL Liver Function 12/14/18 Range/Units 16:20 Total Bilirubin 0.5 (0.3-1.0) mg/dL Direct Bilirubin 0.1 (0.0-0.2) mg/dL AST 37 (13-39) Units/L ALT 13 (7-52) Units/L Alkaline Phosphatase 149 H (34-104) Units/L Albumin 3.4 L (3.5-5.7) g/dL Urine 12/14/18 Range/Units 18:20 Urine Color Yellow (Yellow) Urine Clarity Clear (Clear) Urine pH 6.0 (5.0-8.0) pH Units Ur Specific [place] 1.026 H (1.010-1.025) Urine Protein 100 H (Neg-Trace) mg/dL Urine Glucose (UA) Normal (Normal) mg/dL - EKG Data -: EKG Interpreted by Myself - EKG Data Prior EKG available for review: no EKG comments: 12/15/18 04:49 NSR; no acute ST-T changes - Impressions ITS Impressions Head CT 12/14/18 16:46 IMPRESSION: No acute intracranial abnormality. Right frontal lobe encephalomalacia D/ / Petros Lopez MD / Petros Lopez MD Interpreting Provider: Petros Lopez MD - Diagnostic Studies Chest x-ray Status: image reviewed by me (mild pulmonary vascular congestion) - Assessment and Plan (1) Symptomatic anemia Current Visit: Yes Status: Acute Assessment and plan: 1. Transfuse PRBC and monitor H/H. 2. Consult HEM/ONC. 3. Peripheral blood smear. 4. May need EGD/Colonoscopy. 5. Hemoccult negative. 6. Monitor for any signs of bleeding. (2) Elevated troponin I level Current Visit: Yes Status: Acute Assessment and plan: 1. Will trend troponins and EKG's. 2. Transfuse PRBC as above. 3. Unable to anti-coagulate due to high risk of bleeding and thrombocytopenia. 4. ECHO. 5. Consult Cardiology. 6. Likely due to anemia. (3) CVA (cerebral vascular accident) Current Visit: Yes Status: Acute Assessment and plan: 1. Will proceed with stroke work-up. 2. Symptoms started 2 weeks ago. 3. MRI head, spine, and Carotid Dopplers. 4. ECHO as above. Qualifiers: CVA mechanism: unspecified Qualified Code(s): I63.9 - Cerebral infarction, unspecified (4) Pancytopenia Current Visit: Yes Status: Acute Assessment and plan: 1. Possible due to Hep C or other viral suppression. 2. Consult HEM/ONC; likely needs bone marrow biopsy. 3. Peripheral blood smear ordered. (5) DVT prophylaxis Current Visit: Yes Status: Acute Assessment and plan: 1. EPCD's.
[2018-12-14] MEDS ORDERED: 0.9 % Sodium Chloride 250 ML ONE (22:02)
[2018-12-14] MEDS: Ipratropium/Albuterol Neb 3 ML IH SCH (22:38)
[2018-12-15] MEDS ORDERED: 0.9 % Sodium Chloride 250 ML ONE (01:21)
[2018-12-15] MEDS ORDERED: *HR* HYDROcodone/Acet 5/325 mg TABLET PO ONE (01:35)
[2018-12-15 04:28] VITALS: BP 92/75
[2018-12-15] MEDS ORDERED: Ipratropium/Albuterol Neb 3 ML IH PRN (04:39)
[2018-12-15] MEDS: Ipratropium/Albuterol Neb 3 ML IH SCH (04:40)
[2018-12-15] MEDS ORDERED: Piperacillin/Tazobactam 3.375 GM in 0.9 % Sodium Chloride Mini Bag 100 ML IVPB SCH (05:00)
--- NOTE | 2018-12-15 06:11 | Event Note ---
Date of Encounter: 12/15/18 Time of Encounter: 05:10 Alerted by pts. nurse LENIN Simental that the pt. was admitted last night and had been agitated and using nothing this swear words. Patient had received medication for pain when necessary it is not happy and threatening to leave. Patient was admitted for symptomatic anemia, elevated troponin level, CVA, and pancytopenia with white blood count of 1.9. Patient's urine tox screen positive for meth. Nurse reported pt. was wanting to leave AMA and was crying. Went to see the pt. who was sitting in bedside chair. I informed the pt. that she was very ill and the possibility of was very high if she left untreated. I informed her that her WBC was 1.9. She stated that she had been in this hell hole for two days and nothing was being done. I informed the pt. that she was admitted several hours ago, not several days. I told her she was likely withdrawing from meth and required further treatment. I told the pt. she had a choice: stay here and receive the treatment she needs of leave and risk . I told her it was her choice. I then asked the pt. if she understood what I had just said to her. She stated she understood she could and didn't care. Pt. stated she was leaving. Nurse removed pts. IV access. AMA paperwork signed by myself, nurse and the pt. Pt. then left AMA.
[2018-12-15] MEDS ORDERED: Aspirin Enteric Coated 81 MG Tablet PO SCH ×2 (09:00)
[2018-12-15 10:46] LABS: Acinetobacter baumannii by PCR Not Detected (Not Detect); Candida albicans by PCR Not Detected (Not Detect); Candida glabrata by PCR Not Detected (Not Detect); Candida krusei by PCR Not Detected (Not Detect); Candida parapsilosis by PCR Not Detected (Not Detect); Candida tropicalis by PCR Not Detected (Not Detect); Enterobacter cloacae Cmplx PCR Not Detected (Not Detect); Enterobacteriaceae by PCR Not Detected (Not Detect); Enterococcus by PCR DETECTED (Not Detect); Escherichia coli by PCR Not Detected (Not Detect); Klebsiella oxytoca by PCR Not Detected (Not Detect); Klebsiella pneumoniae by PCR Not Detected (Not Detect); Proteus by PCR Not Detected (Not Detect); Pseudomonas aeruginosa by PCR Not Detected (Not Detect); Serratia marcescens by PCR Not Detected (Not Detect); Staphylococcus aureus by PCR Not Detected (Not Detect); Staphylococcus by PCR Not Detected (Not Detect); Streptococcus agalactiae(B)PCR Not Detected (Not Detect); Streptococcus by PCR Not Detected (Not Detect); Streptococcus pneumoniae PCR Not Detected (Not Detect); Streptococcus pyogenes (A) PCR Not Detected (Not Detect); vanA/B Vancomycin-Resist Genes Not Detected (Not Detect)
--- NOTE | 2018-12-15 13:14 | Event Note ---
Date of Encounter: 12/15/18 Time of Encounter: 13:00 Notified by nursing at [facility] that patient has Gram positive cocci growing in blood. Attempted to reach patient on the 2 cell phone numbers left in the chart. There was no response but I left a message in voicemail notifying her of her blood culture results and to return to the ER as soon as possible
--- NOTE | 2018-12-15 17:41 | Electrocardiograph Report ---
[place] [id number] Test Date: 2018-12-14 Pat Name: Edwige Valencia Department: [id number] Room: 2NE20 Gender: F Director Emergency: : 1970 Requested By: Sonny Gilbert Order Number: [id number] Reading MD: Jeannie Patrick Measurements Intervals [place] Rate: 81 P: 83 HI: 169 QRS: 91 QRSD: 95 T: 83 QT: 422 QTc: 490 Interpretive Statements Sinus rhythm Borderline right axis deviation Borderline prolonged QT interval Electronically Signed On 12-15-2018 17:40:37 EDT by Jeannie Patrick
== END 2018-12-15 06:13 | disposition left against medical advice (07) | DRG 660 ==
LOC: EMEROOARM 15:19 → 2NENU 21:49
PROVIDERS: ADMIT Internal Medicine; ATTEND Internal Medicine